=== PATIENT | male | born 2000 | race Caucasian/White ===

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

== ENCOUNTER 2021-04-07 22:06 | Emergency (ER) | payer MEDICAID ==
[2021-04-07 22:24] VITALS: BP 126/76
--- NOTE | 2021-04-07 22:24 | ED Physician Documentation ---
PD HPI HEENT - Stated complaint Stated Complaint: COUGHING BLOOD,SORE THROAT - Chief complaint Chief Complaint: Resp - History obtained from History obtained from: Patient - History of Present Illness Timing - onset: How many days ago (3-4) Timing - details: Gradual onset Location: Throat Improves: Nothing Worsens: Swalllowing Associated symptoms: Cough. No: Fever, Unable to swallow Similar symptoms before: Has not had sx before Recently seen: Not recently seen - Additional information Additional information: c/o sore throat and cough productive of blood-tinged but otherwise clear sputum. He notes mild dyspnea. Symptoms started 3 days ago, gradual onset. Review of Systems Constitutional: denies: Fever, Chills, Sweats Ears: denies: Ear pain Throat: reports: Sore throat Cardiac: denies: Chest pain / pressure Respiratory: reports: Cough, Hemoptysis. denies: Dyspnea PD PAST MEDICAL HISTORY - Past Medical History Cardiovascular: None Respiratory: Asthma Neuro: None Endocrine/Autoimmune: None GI: None : None HEENT: None Psych: Depression, Anxiety Musculoskeletal: None Derm: None - Past Surgical History Past Surgical History: Yes - Present Medications Home Medications: Ambulatory Orders Medication Instructions Recorded Confirmed No Known Home Medications 08/10/19 08/10/19 - Allergies Allergies/Adverse Reactions: Allergies Allergy/AdvReac Type Severity Reaction Status Date / Time amoxicillin [Amoxicillin] AdvReac Intermediate Rash Verified 04/07/21 22:19 - Social History Does the pt smoke?: Yes Smoking Status: Current every day smoker Does the pt drink ETOH?: No Does the pt have substance abuse?: No - Immunizations Immunizations are current?: Yes - POLST Patient has POLST: No PD ED PE NORMAL - Vitals Vital signs reviewed: Yes - General General: Alert and oriented X 3, No acute distress, Well developed/nourished - HEENT HEENT: Moist mucous membranes - Neck Neck: Supple, no meningeal sign - Respiratory Respiratory: No respiratory distress, Clear bilaterally PD ED PE EXPANDED - HEENT HEENT: Pharyngeal erythema (mild posterior o/p erythema without exudate or swelling) Results - Vitals Vitals: Vital Signs - 24 hr 04/07/21 22:19 Temperature 37.0 C Heart Rate 69 Respiratory 16 Rate Blood Pressure 126/76 O2 Saturation 97 Oxygen O2 Source Room air - Labs Labs: Laboratory Tests 04/07/21 22:35 Group A Strep Rapid Negative - Rads (name of study) chest xray Radiology: Prelim report reviewed, See rad report PD MEDICAL DECISION MAKING - ED course Complexity details: reviewed results, re-evaluated patient, considered differential, d/w patient ED course: rapid strep negative and normal chest xray. he is in NAD, has mild posterior o/p erythema. He describes cough with blood-tinged sputum. Given PO decadron in ED. A COVID test is performed, should result in 2 days; he is not COVID vaccinated Departure - Departure Disposition: 01 Home, Self Care Clinical Impression: Bronchitis Condition: Good Instructions: ED Upper Resp Infec No Abx Tx, ED Hemoptysis Follow-Up: German Arrieta [Primary Care Provider] - Forms: Activity restrictions Discharge Date/Time: 04/07/21 23:28
[2021-04-07] MEDS ORDERED: DEXAMETHASONE 10 MG/ML VIAL PO STA (22:40)
[2021-04-07] MEDS ORDERED: CHERRY SYRUP 10 ML UDC PO ONE (22:40)
[2021-04-07 22:50] LABS: RAPID STREP SCREEN Negative (Negative)
--- NOTE | 2021-04-08 08:23 | XRAY Report ---
PROCEDURE: Chest 2 View X-Ray INDICATIONS: hemoptysis, dyspnea TECHNIQUE: 2 view(s) of the chest. COMPARISON: 03/20/2019 FINDINGS: Surgical changes and devices: None. Lungs and pleura: No pleural effusions or pneumothorax. Lungs are clear. Mediastinum: Mediastinal contours are normal. Heart size is normal. Bones and chest wall: No suspicious bony abnormalities. Soft tissues appear unremarkable. IMPRESSION: No evidence acute pulmonary process. A preliminary report with the above findings was provided at the time of the study by [facility]. Reviewed by: Jagjit Freeman MD on 04/08/2021 7:22 AM DAVID Approved by: Jagjit Freeman MD on 04/08/2021 7:22 AM DAVID Station ID: [id number]
== END 2021-04-07 23:28 | disposition home or self-care (01) ==
LOC: ED 22:06
DX: J40 Bronchitis, not specified as acute or chronic (principal); F17.200 Nicotine dependence, unspecified, uncomplicated; Z20.822 Contact with and (suspected) exposure to COVID-19
CPT/HCPCS: 71046; 87070; 87430; 87635; 99283; 99284; A9270

== ENCOUNTER 2021-07-05 14:57 | Outpatient (CLI) | payer MEDICAID | END 2021-07-05 14:58 | disposition critical access hospital (66) | LOC: EMS 14:57 | DX: R56.9 Unspecified convulsions (principal) | CPT/HCPCS: A0425; A0427; A0999 ==

== ENCOUNTER 2021-07-05 15:23 | Emergency (ER) | payer MEDICAID ==
--- NOTE | 2021-07-05 15:37 | ED Physician Documentation ---
PD HPI SEIZURE - Stated complaint Stated Complaint: SZ - Chief complaint Chief Complaint: Neuro - History obtained from History obtained from: Patient, EMS - History of Present Illness Description of seizure activity: Generalized, Tonic clonic Injury during seizure: None Pain level max: 0 Pain level now: 0 Associated symptoms: None History of seizures: First seizure Recently seen: Not recently seen - Additional information Additional information: 21-year-old male who presents to the emergency department with seizure-like activity today. The first episode lasted about 2 to 3 minutes. Was postictal afterwards. EMS was called and picked the patient up. Had another 30 second seizure with EMS. Patient has never had seizures before. The seizure was described as generalized, tonic-clonic. No fall. No head injury. No incontinence. No tongue biting. No injuries. The patient states that he does drink alcohol "until I black out and can't see" and when asked how often he states "whenever I can". Last drink was 1-2 days ago. Given Versed by EMS in the ambulance. Review of Systems Ten Systems: 10 systems reviewed and negative Constitutional: denies: Fever, Chills Ears: denies: Ear pain Nose: denies: Rhinorrhea / runny nose, Congestion Throat: denies: Sore throat Cardiac: denies: Chest pain / pressure Respiratory: denies: Cough GI: denies: Abdominal Pain, Nausea, Vomiting, Diarrhea : denies: Dysuria Skin: denies: Rash Musculoskeletal: denies: Neck pain, Back pain Neurologic: reports: Headache (mild holocranial) PD PAST MEDICAL HISTORY - Past Medical History Past Medical History: No - Past Surgical History Past Surgical History: No - Present Medications Home Medications: Ambulatory Orders Medication Instructions Recorded Confirmed No Known Home Medications 07/05/21 07/05/21 - Allergies Allergies/Adverse Reactions: Allergies Allergy/AdvReac Type Severity Reaction Status Date / Time amoxicillin Allergy Unknown Verified 07/05/21 15:47 - Living Situation Living Arrangement: reports: At home - Social History Does the pt drink ETOH?: Yes ETOH Use: Liquor Does the pt have substance abuse?: Yes Substance Use and Type: Marijuana - Family History Family history: reports: Non contributory PD ED PE NORMAL - Vitals Vital signs reviewed: Yes - General General: Alert and oriented X 3, No acute distress - HEENT HEENT: Atraumatic, PERRL, EOMI, Ears normal, Moist mucous membranes, Pharynx benign, Dentition benign, Other (No tongue biting no scalp hematomas) - Neck Neck: Supple, no meningeal sign, No bony TTP - Cardiac Cardiac: RRR, No murmur, Strong equal pulses - Respiratory Respiratory: No respiratory distress, Clear bilaterally - Abdomen Abdomen: Soft, Non tender, Non distended - Back Back: No spinal TTP - Derm Derm: Warm and dry - Extremities Extremities: Normal ROM s pain, No edema - Neuro Neuro: Alert and oriented X 3, word processor 2-12 intact, No motor deficit, No sensory deficit, Normal speech Eye Opening: Spontaneous Motor: Obeys Commands Verbal: Oriented GCS Score: 15 - Psych Psych: Normal mood, Normal affect Results - Vitals Vitals: Vital Signs - 24 hr 07/05/21 07/05/21 07/05/21 15:31 17:36 19:00 Temperature 36.8 C 36.6 C 36.7 C Heart Rate 61 48 L 45 L Respiratory 17 20 20 Rate Blood Pressure 102/75 112/61 122/50 L O2 Saturation 99 99 96 07/05/21 19:57 Temperature Heart Rate 50 L Respiratory 16 Rate Blood Pressure 118/50 L O2 Saturation 98 Oxygen O2 Source Room air - Labs Labs: Laboratory Tests 07/05/21 07/05/21 07/05/21 15:36 15:54 15:54 WBC 8.5 RBC 5.26 Hgb 15.0 Hct 45.9 MCV 87.3 MCH 28.5 MCHC 32.7 RDW 13.5 Plt Count 253 MPV 10.5 Neut # (Auto) 5.9 Lymph # (Auto) 1.7 [place] # (Auto) 0.6 Eos # (Auto) 0.3 Baso # (Auto) 0.0 Absolute Nucleated RBC 0.00 Nucleated RBC % 0.0 Sodium 137 Potassium 3.7 Chloride 102 Carbon Dioxide 27 Anion Gap 8.0 BUN 15 Creatinine 1.1 Estimated GFR (MDRD) 85 L Glucose 99 POC Whole Bld Glucose 112 H Calcium 9.1 Total Bilirubin 0.6 AST 30 ALT 45 Alkaline Phosphatase 48 Total Protein 7.8 Albumin 4.3 Globulin 3.5 Albumin/Globulin Ratio 1.2 Lipase 26 TSH Urine Color Urine Clarity Urine pH Ur Specific Martell Urine Protein Urine Glucose (UA) Urine Ketones Urine Occult Blood Urine Nitrite Urine Bilirubin Urine Urobilinogen Ur Leukocyte Esterase Ur Microscopic Review Urine Culture Comments Salicylates < 6.0 Urine Opiates Screen Ur Oxycodone Screen Urine Methadone Screen Ur Propoxyphene Screen Acetaminophen < 10 L Ur Barbiturates Screen Ur Tricyclics Screen Ur Phencyclidine Scrn Ur Amphetamine Screen U Methamphetamines Scrn U Benzodiazepines Scrn Urine Cocaine Screen U Cannabinoids Screen Ethyl Alcohol < 5.0 07/05/21 07/05/21 15:54 16:02 WBC RBC Hgb Hct MCV MCH MCHC RDW Plt Count MPV Neut # (Auto) Lymph # (Auto) Washburn # (Auto) Eos # (Auto) Baso # (Auto) Absolute Nucleated RBC Nucleated RBC % Sodium Potassium Chloride Carbon Dioxide Anion Gap BUN Creatinine Estimated GFR (MDRD) Glucose POC Whole Bld Glucose Calcium Total Bilirubin AST ALT Alkaline Phosphatase Total Protein Albumin Globulin Albumin/Globulin Ratio Lipase TSH 4.15 Urine Color YELLOW Urine Clarity CLEAR Urine pH 7.5 Ur Specific Martell 1.015 Urine Protein NEGATIVE Urine Glucose (UA) NEGATIVE Urine Ketones NEGATIVE Urine Occult Blood NEGATIVE Urine Nitrite NEGATIVE Urine Bilirubin NEGATIVE Urine Urobilinogen 0.2 (NORMAL) Ur Leukocyte Esterase NEGATIVE Ur Microscopic Review NOT INDICATED Urine Culture Comments NOT INDICATED Salicylates Urine Opiates Screen NEGATIVE Ur Oxycodone Screen NEGATIVE Urine Methadone Screen NEGATIVE Ur Propoxyphene Screen NEGATIVE Acetaminophen Ur Barbiturates Screen NEGATIVE Ur Tricyclics Screen NEGATIVE Ur Phencyclidine Scrn NEGATIVE Ur Amphetamine Screen NEGATIVE U Methamphetamines Scrn NEGATIVE U Benzodiazepines Scrn NEGATIVE Urine Cocaine Screen NEGATIVE U Cannabinoids Screen POSITIVE H Ethyl Alcohol - Rads (name of study) Head CT Radiology: Final report received, EMP read contemporaneously, See rad report (No acute intracranial abnormality) PD MEDICAL DECISION MAKING - ED course Complexity details: reviewed results, re-evaluated patient, considered differential, d/w patient ED course: Patient with seizure-like activity today. Unclear etiology. He states he does drink heavily on a regular basis and has not drank for over 24 hours. Possible alcohol withdrawal seizure. We will have him follow-up with his doctor for MRI/EEG. We will hold off on antiepileptics unless there is a another seizure. Patient counseled to avoid alcohol and other drugs. Patient also informed he is not to drive until released by his doctor. Patient counseled regarding signs and symptoms for which I believe and urgent re-evaluation would be necessary. Patient with good understanding of and agreement to plan and is comfortable going home at this time This document was made in part using voice recognition software. While efforts are made to proofread this document, sound alike and grammatical errors may occur. Departure - Departure Disposition: 01 Home, Self Care Clinical Impression: Seizure-like activity Condition: Good Instructions: ED Seizure New Onset Unk Cause Follow-Up: German Arrieta [Physician No Access] - Within 1 week Comments: Please follow-up with your doctor within the next week. They need to order an MRI and EEG for you. They may want to refer you to neurology as well. Your head CT and laboratory testing did not show any acute abnormalities today. You are not to drive until released by your doctor. Also avoid swimming, baths and any standing water. You should also avoid alcohol or any other drugs. Return if you worsen. Discharge Date/Time: 07/05/21 19:59
[2021-07-05 16:01] LABS: BASOPHILS % (AUTO) 0.4 %; EOSINOPHILS # (AUTO) 0.3 10^3/uL (0.0-0.7); EOSINOPHILS % (AUTO) 2.9 %; HCT - HEMATOCRIT 45.9 % (42.0-52.0); LYMPHOCYTES # (AUTO) 1.7 10^3/uL (1.5-3.5); MEAN CORPUSCULAR HEMOGLOBIN 28.5 pg (27.0-31.0); MEAN CORPUSCULAR HGB CONC 32.7 g/dL (32.0-36.0); MEAN CORPUSCULAR VOLUME 87.3 fL (80.0-94.0); MEAN PLATELET VOLUME 10.5 fL (7.4-11.4); MONOCYTES # (AUTO) 0.6 10^3/uL (0.0-1.0); MONOCYTES % (AUTO) 6.9 %; NEUTROPHILS # (AUTO) 5.9 10^3/uL (1.5-6.6); NEUTROPHILS % (AUTO) 69.6 %; PLT - PLATELET COUNT 253 10^3/uL (130-450); RED BLOOD COUNT 5.26 10^6/uL (4.70-6.10); RED CELL DISTRIBUTION WIDTH 13.5 % (12.0-15.0); WHITE BLOOD COUNT 8.5 x10^3/uL (4.8-10.8)
[2021-07-05 16:10] LABS: MUDS CUTOFF CONCENTRATIONS CUTOFF CONC BELOW:
[2021-07-05 16:16] LABS: BILIRUBIN,URINE NEGATIVE (NEGATIVE); GLUCOSE, URINE (UA) NEGATIVE (NEGATIVE); KETONES,URINE (UA) NEGATIVE (NEGATIVE); LEUKOCYTE ESTERASE, URINE NEGATIVE (NEGATIVE); NITRITE,URINE NEGATIVE (NEGATIVE); OCCULT BLOOD,URINE NEGATIVE (NEGATIVE); PH,URINE 7.5 PH (5.0-7.5); PROTEIN,URINE NEGATIVE (NEGATIVE); UROBILINOGEN,URINE 0.2 (NORMAL) E.U./dL (NORMAL)
[2021-07-05 16:17] LABS: ACETAMINOPHEN < 10 ug/mL (10-30); ALBUMIN 4.3 g/dL (3.2-5.5); ALBUMIN/GLOBULIN RATIO 1.2 (1.0-2.2); ALKALINE PHOSPHATASE 48 IU/L (42-121); ALT ALANINE AMINOTRANSFERASE 45 IU/L (10-60); AST ASPARTATE AMINOTRANSFERASE 30 IU/L (10-42); BILIRUBIN,TOTAL 0.6 mg/dL (0.2-1.0); BUN - BLOOD UREA NITROGEN 15 mg/dL (6-20); CALCIUM 9.1 mg/dL (8.5-10.3); CARBON DIOXIDE - CO2 27 mmol/L (21-32); CHLORIDE 102 mmol/L (101-111); CREATININE 1.1 mg/dL (0.6-1.2); ETOH - ETHANOL < 5.0 mg/dL; GFR - MDRD 85 (>89); GLUCOSE 99 mg/dL (70-100); LIPASE 26 U/L (22-51); POTASSIUM 3.7 mmol/L (3.5-5.0); SALICYLATE < 6.0 mg/dL; SODIUM 137 mmol/L (135-145); TOTAL PROTEIN 7.8 g/dL (6.7-8.2)
[2021-07-05 16:19] LABS: CLARITY,URINE CLEAR (CLEAR)
[2021-07-05 16:25] LABS: AMPHETAMINE SCREEN,URINE NEGATIVE (NEGATIVE); BARBITURATE SCREEN,UR NEGATIVE (NEGATIVE); BENZODIAZEPINES SCREEN, URINE NEGATIVE (NEGATIVE); COCAINE SCREEN URINE NEGATIVE (NEGATIVE); METHADONE SCREEN, URINE NEGATIVE (NEGATIVE); METHAMPHETAMINES SCREEN, URINE NEGATIVE (NEGATIVE); OPIATE SCREEN, URINE NEGATIVE (NEGATIVE); OXYCODONE SCREEN, URINE NEGATIVE (NEGATIVE); PROPOXYPHENE SCREEN, URINE NEGATIVE (NEGATIVE); THC CANNABINOID SCREEN, URINE POSITIVE (NEGATIVE); TRICYCLIC ANTIDEPRESSANT,URINE NEGATIVE (NEGATIVE)
[2021-07-05 19:59] VITALS: BP 118/50
--- NOTE | 2021-07-11 06:19 | CT Report ---
PROCEDURE: HEAD WO INDICATIONS: seizure like activity TECHNIQUE: Noncontrast 4.5 mm thick angled axial sections acquired from the foramen magnum to the vertex. For r adiation dose reduction, the following was used: automated exposure control, adjustment of mA and/or kV according to patient size. COMPARISON: None. FINDINGS: Image quality: Excellent. CSF spaces: Basal cisterns are patent. No extra-axial fluid collections. Ventricles are normal in size and shape. Brain: No midline shift. No intracranial masses or hemorrhage. Calix-white matter interface is norm al. Skull and face: Calvarium and visualized facial bones are intact, without suspicious lesions. Sinuses: Visualized sinuses and mastoids are clear. IMPRESSION: No acute intracranial abnormality. Reviewed by: Michael Jacob MD on 07/05/2021 5:40 PM DAVID Approved by: Michael Jacob MD on 07/05/2021 5:40 PM DAVID Station ID: [id number]
== END 2021-07-05 19:59 | disposition home or self-care (01) ==
LOC: ED 15:23 → MERGE 15:23 → ED 19:59
DX: R56.9 Unspecified convulsions (principal)
CPT/HCPCS: 36415; 80053; 80306; 80307; 80320; 80329; 81001; 81003; 83690; 84443; 85025; 87086; 99284

== ENCOUNTER 2022-03-09 01:00 | Emergency (ER) | payer MEDICAID ==
[2022-03-09 01:16] VITALS: BP 109/60
== END 2022-03-09 02:26 | disposition left against medical advice (07) ==
LOC: ED 01:00
DX: Z53.21 Procedure and treatment not carried out due to patient leaving prior to being seen by health care provider (principal)

== ENCOUNTER 2022-03-14 00:35 | Emergency (ER) | payer MEDICAID ==
[2022-03-14] MEDS ORDERED: SILVER SULFADIAZINE CREAM 25 GM TUBE TOP STA (01:11)
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
[2022-03-14 01:41] VITALS: BP 127/64
== END 2022-03-14 01:40 | disposition home or self-care (01) ==
LOC: ED 00:35
DX: T24.231A Burn of second degree of right lower leg, initial encounter (principal); X58.XXXA Exposure to other specified factors, initial encounter; F17.200 Nicotine dependence, unspecified, uncomplicated
CPT/HCPCS: 99282; 99284; A9270

== ENCOUNTER 2022-07-19 14:27 | Emergency (ER) | payer MEDICAID ==
[2022-07-19 15:03] LABS: RAPID STREP SCREEN Negative (Negative)
[2022-07-19] MEDS ORDERED: CHERRY SYRUP 10 ML UDC PO ONE (16:16)
[2022-07-19] MEDS ORDERED: DEXAMETHASONE 10 MG/ML VIAL PO STA (16:16)
[2022-07-19] MEDS ORDERED: cephALEXin 250 MG CAPSULE PO STA (16:17)
[2022-07-19] MEDS ORDERED: IBUPROFEN 800 MG TABLET PO STA (16:18)
--- NOTE | 2022-07-19 16:39 | XRAY Report ---
PROCEDURE: Chest 1 View X-Ray INDICATIONS: cough/SOA TECHNIQUE: One view of the chest was acquired. COMPARISON: 04/07/2021 FINDINGS: Surgical changes and devices: None. Lungs and pleura: No pleural effusions or pneumothorax. Lungs are clear. Mediastinum: Mediastinal contours appear normal. Heart size is normal. Bones and chest wall: No suspicious bony lesions. Overlying soft tissues appear unremarkable. IMPRESSION: No acute cardiopulmonary process demonstrated radiographically. Reviewed by: Dick Bryant MD on 07/19/2022 4:38 PM PDT Approved by: Dick Bryant MD on 07/19/2022 4:38 PM PDT Station ID: [id number]
--- NOTE | 2022-07-19 16:55 | ED Physician Documentation ---
PD HPI HEENT - Stated complaint Stated Complaint: TONSILLITIS - Chief complaint Chief Complaint: Heent - History obtained from History obtained from: Patient - Additional information Additional information: Patient is a 22-year-old male presenting for evaluation of sore throat and discomfort in his throat for 3 to 4 days. He reports pain with trying to eat but has been able to hydrate. He has not tried anything for his symptoms. He denies a fever, difficulty breathing. He does report having a cough and sometimes feels burning in his chest.He denies nausea or vomiting. He denies known sick contacts. Review of Systems Constitutional: denies: Fever Nose: denies: Congestion Throat: reports: Sore throat Cardiac: denies: Chest pain / pressure Respiratory: reports: Cough. denies: Dyspnea GI: denies: Abdominal Pain, Vomiting Musculoskeletal: denies: Neck pain, Back pain Neurologic: denies: Headache PD PAST MEDICAL HISTORY - Past Medical History Cardiovascular: None Respiratory: Asthma Neuro: None Endocrine/Autoimmune: None GI: None : None HEENT: None Psych: Bipolar disorder, Depression, Anxiety Musculoskeletal: None Derm: None - Past Surgical History Past Surgical History: Yes Ortho: Other - Present Medications Home Medications: Ambulatory Orders Medication Instructions Recorded Confirmed cephALEXin [Keflex] 500 mg PO BID 10 Days #20 cap 07/19/22 - Allergies Allergies/Adverse Reactions: Allergies Allergy/AdvReac Type Severity Reaction Status Date / Time amoxicillin [Amoxicillin] AdvReac Intermediate Rash Verified 07/19/22 15:03 - Social History Does the pt smoke?: Yes Smoking Status: Current every day smoker Does the pt drink ETOH?: Yes Does the pt have substance abuse?: Yes - Immunizations Immunizations are current?: Yes - POLST Patient has POLST: No PD ED PE NORMAL - General General: Alert and oriented X 3, No acute distress, Well developed/nourished - HEENT HEENT: Atraumatic, PERRL, EOMI, Moist mucous membranes, Pharynx benign (Mild bilateral tonsillar enlargement with Exudate bilaterally, uvula is midline and not swollen; No signs of peritonsillar abscess) - Neck Neck: Supple, no meningeal sign, No bony TTP. No: No adenopathy (Bilateral anterior cervical lymphadenopathy) - Cardiac Cardiac: RRR - Respiratory Respiratory: No respiratory distress, Clear bilaterally - Abdomen Abdomen: Non tender, Non distended - Derm Derm: Warm and dry - Extremities Extremities: No edema Results - Vitals Vitals: Vital Signs - 24 hr 07/19/22 07/19/22 14:34 17:12 Temperature 36.4 C L 36.7 C Heart Rate 88 98 Respiratory 16 16 Rate Blood Pressure 118/68 106/79 O2 Saturation 98 100 Oxygen O2 Source Room air - Labs Labs: Laboratory Tests 07/19/22 14:41 Group A Strep Rapid Negative PD MEDICAL DECISION MAKING - ED course Complexity details: reviewed results, re-evaluated patient ED course: Patient presenting for evaluation of sore throat for 3 to 4 days. Strep swab was obtained at triage and rapid strep is negative. However based on patient's presentation and appearance of tonsils with exudate, I am concerned that there is a strep infection and rather than wait on cultures I discussed with patient on initiating antibiotics and he is agreeable. I also gave him a dose of Decadron and to help with inflammation and advised use of ibuprofen as well as continued hydration. No signs of peritonsillar abscess or airway compromise. Discussed concerning symptoms to return for. Patient had also reported cough And feeling that his chest is burning and chest x-ray was obtained and is negative. Departure - Departure Disposition: 01 Home, Self Care Clinical Impression: Acute pharyngitis Condition: Stable Instructions: ED Strep Pharyngitis Poss Prescriptions: cephALEXin [Keflex] 500 mg PO BID 10 Days #20 cap Comments: You were evaluated for a sore throat. A rapid strep test is negative but based on your clinical presentation I am concerned you may still have a strep infection and have started you on an oral antibiotic called Keflex.I have sent the prescription to [facility] in [place]. Due to the inflammation I have also given you a dose of steroid Called Decadron. I would continue with using anti- inflammatory such as ibuprofen and making sure you stay hydrated with plenty of fluids. If you have any worsening symptoms please consider return to the ER. Discharge Date/Time: 07/19/22 17:17
[2022-07-19 17:14] VITALS: BP 106/79
== END 2022-07-19 17:17 | disposition home or self-care (01) ==
LOC: ED 14:27
DX: J02.9 Acute pharyngitis, unspecified (principal); F17.200 Nicotine dependence, unspecified, uncomplicated
CPT/HCPCS: 71045; 87070; 87430; 99283; A9270

== ENCOUNTER 2022-08-08 16:39 | Emergency (ER) | payer MEDICAID ==
[2022-08-08 18:22] LABS: RAPID STREP SCREEN Negative (Negative)
[2022-08-08 19:06] LABS: B. PARAPERTUSSIS- RESP PCR PAN NOT DETECTED; B. PERTUSSIS- RESP PCR PANEL NOT DETECTED; C. PNEUMONIAE- RESP PCR PANEL NOT DETECTED; CORONAVIRUS 229E-RESP PCR NOT DETECTED; CORONAVIRUS HKU1-RESP PCR NOT DETECTED; CORONAVIRUS NL63-RESP PCR NOT DETECTED; CORONAVIRUS OC43-RESP PCR NOT DETECTED; HUMAN METAPNEUMOVIRUS NOT DETECTED; INFLUENZA A- RESP PCR PANEL NOT DETECTED; INFLUENZA B - RESP PCR PANEL NOT DETECTED; M. PNEUMONIAE- RESP PCR PANEL NOT DETECTED; PARAINFLUENZA VIRUS 1 NOT DETECTED; PARAINFLUENZA VIRUS 2 NOT DETECTED; PARAINFLUENZA VIRUS 3 NOT DETECTED; PARAINFLUENZA VIRUS 4 NOT DETECTED; RHINOVIRUS/ENTEROVIRUS NOT DETECTED; RSV- RESP PCR PANEL NOT DETECTED; SARS-CoV-2 -RESP PCR PANEL NOT DETECTED
[2022-08-08] MEDS ORDERED: HYDROcod/ACET 5/325 Prepack 4 PO STA (20:01)
[2022-08-08] MEDS ORDERED: LIDOCAINE 1% 2 ML VIAL MC ONE (20:01)
[2022-08-08] MEDS ORDERED: CHERRY SYRUP 10 ML UDC PO ONE (20:01)
[2022-08-08] MEDS ORDERED: DEXAMETHASONE 10 MG/ML VIAL PO STA (20:01)
[2022-08-08] MEDS ORDERED: cefTRIAXone 500 MG VIAL IM STA (20:01)
[2022-08-08] MEDS ORDERED: HYDROcod/ACETAM 5/325 MG TABLET PO STA (20:01)
--- NOTE | 2022-08-08 20:01 | ED Physician Documentation ---
PD HPI HEENT - Stated complaint Stated Complaint: SORE THROAT - Chief complaint Chief Complaint: Heent - History obtained from History obtained from: Patient - History of Present Illness Timing - onset: How many days ago (2-3 days with recurring symptoms now.), How many weeks ago (initially with similar symptoms 3 weeks ago and seen in ER with Dx empirically of tonsillitis. Rx with Keflex and mostly better per patient. Recurred symptoms within couple days after finished. Now worse symptoms with some garbling of speech.) Timing - details: Gradual onset, Still present Location: Throat. No: Nose Worsens: Swalllowing Associated symptoms: Fever, Swollen nodes. No: Congestion, Facial swelling, Cough Similar symptoms before: No diagnosis (had episode about 3 months ago similar. Then again couple weeks ago and now recurrent. rapid strep negative on recent visit and culture had normal irma.) Review of Systems Constitutional: reports: Fever Nose: denies: Rhinorrhea / runny nose, Congestion Throat: reports: Sore throat, Swollen tonsils Respiratory: denies: Cough GI: denies: Abdominal Pain, Nausea, Vomiting, Diarrhea Skin: denies: Rash, Lesions Neurologic: denies: Near syncope, Altered mental status, Headache PD PAST MEDICAL HISTORY - Past Medical History Cardiovascular: None Respiratory: Asthma Neuro: None Endocrine/Autoimmune: None GI: None : None HEENT: None Psych: Bipolar disorder, Depression, Anxiety Musculoskeletal: None Derm: None - Past Surgical History Past Surgical History: Yes Ortho: Other - Present Medications Home Medications: Ambulatory Orders Medication Instructions Recorded Confirmed cephALEXin [Keflex] 500 mg PO BID 10 Days #20 cap 07/19/22 Cefdinir 300 mg PO BID 10 Days #20 cap 08/08/22 HYDROcod/ACETAM 5/325 [Madison 5/325] 1 ea PO Q6H PRN #10 tablet 08/08/22 dexAMETHasone [Decadron] 4 mg PO DAILY #5 tablet 08/08/22 - Allergies Allergies/Adverse Reactions: Allergies Allergy/AdvReac Type Severity Reaction Status Date / Time amoxicillin [Amoxicillin] AdvReac Intermediate Rash Verified 08/08/22 16:58 - Social History Does the pt smoke?: Yes Smoking Status: Current every day smoker Does the pt drink ETOH?: Yes Does the pt have substance abuse?: Yes - Immunizations Immunizations are current?: Yes - POLST Patient has POLST: No PD ED PE NORMAL - Vitals Vital signs reviewed: Yes - General General: Alert and oriented X 3, No acute distress, Well developed/nourished - HEENT HEENT: Ears normal, Dentition benign. No: Pharynx benign (bilateral tonsils of moderately large size with exudate on both sides. No deviation toward center. There is however some tissue swelling mildly around both lateral sides of tonsils. mild garbling of voice with speaking. ) - Neck Neck: Supple, no meningeal sign, Other (anterior adenopathy mild to moderate. No general fullness. ) - Cardiac Cardiac: RRR, No murmur - Respiratory Respiratory: Clear bilaterally - Derm Derm: Normal color, Warm and dry, No rash - Neuro Neuro: Alert and oriented X 3, No motor deficit, Normal speech Results - Vitals Vitals: Vital Signs - 24 hr 08/08/22 08/08/22 08/08/22 16:55 19:37 20:30 Temperature 37.1 C Heart Rate 88 76 Respiratory 12 18 Rate Blood Pressure 117/60 142/66 H O2 Saturation 99 97 Oxygen O2 Source Room air - Labs Labs: Laboratory Tests 08/08/22 08/08/22 17:53 17:53 Nasal Adenovirus (PCR) NOT DETECTED Nasal B. parapertussis DNA (PCR) NOT DETECTED Nasal Coronavir 229E PCR NOT DETECTED Nasal Coronavir HKU1 PCR NOT DETECTED Nasal Coronavir NL63 PCR NOT DETECTED Nasal Coronavir OC43 PCR NOT DETECTED Nasal Enterovir/Rhinovir PCR NOT DETECTED Nasal Influenza B PCR NOT DETECTED Nasal Influenza A PCR NOT DETECTED Nasal Parainfluen 1 PCR NOT DETECTED Nasal Parainfluen 2 PCR NOT DETECTED Nasal Parainfluen 3 PCR NOT DETECTED Nasal Parainfluen 4 PCR NOT DETECTED Nasal RSV (PCR) NOT DETECTED Nasal B.pertussis DNA PCR NOT DETECTED Nasal C.pneumoniae (PCR) NOT DETECTED Jackson Human Metapneumo PCR NOT DETECTED Nasal M.pneumoniae (PCR) NOT DETECTED Nasal SARS-CoV-2 (PCR) NOT DETECTED Group A Strep Rapid Negative PD MEDICAL DECISION MAKING - ED course Complexity details: reviewed old records (throat culture and reapid strep test from recent visit both negative. ), re-evaluated patient (Clinically he has very concerning appearance for bacterial tonsillitis and peritonsillitis. No signs of peritonsillar abscess per se. Assumed nonstrep bacterial infection.), considered differential (clearly enlarged and exudative tonsils with some tissue edema mildly surrounding tonsils. No tonsillar deviation nor focal swelling. Had mostly improved with Keflex and now recurs. Will broaden coverage with 3rd Gen cephalosporin. ), d/w patient Departure - Departure Disposition: 01 Home, Self Care Clinical Impression: Recurrent acute tonsillitis, Peritonsillitis Condition: Stable Record reviewed to determine appropriate education?: Yes Follow-Up: [facility] [Provider Group] Prescriptions: Cefdinir 300 mg PO BID 10 Days #20 cap dexAMETHasone [Decadron] 4 mg PO DAILY #5 tablet HYDROcod/ACETAM 5/325 [Madison 5/325] 1 ea PO Q6H PRN #10 tablet PRN Reason: Pain Comments: Your tonsils are quite enlarged with exudate and look infected. Your prior strep test and throat culture from a few weeks ago was negative for strep. Therefore consider other causes. It does look like a bacterial type infection and had improved with the cephalexin for a while. I therefore would use a broader coverage cephalosporin along with the anti- inflammatories and pain medicine and see if it will go away consistently now. Given the recurrences of this over the last few months, you could also consult with the carroting machine offbearer to see if there is any indications for tonsil removal. I transmitted your prescriptions to [facility]. I am prescribing a short course of narcotic pain medication for you. These are potentially dangerous and addictive medications that should be used carefully. These medications may constipate you. Take an [id number] stool softener such as docusate twice daily with plenty of water while taking these medicat ions. If you go 24 hours without a bowel movement, take [id number] MiraLAX, per package instructions. Do not drink or drive while taking these medications. If you received narcotic or sedating medications while in the emergency department do not drive for 24 hours. Store this medication in a safe, secure place and out of reach of children. It is a violation of federal law to give or sell this medication to another person or to use in a manner other than prescribed. The ED will not refill narcotic prescriptions, including prescriptions lost or stolen. You can dispose of unwanted medications at the [facility], [facility]'s office or at several pharmacies such as [facility]. Discharge Date/Time: 08/08/22 20:37
[2022-08-08 20:30] VITALS: BP 142/66
== END 2022-08-08 20:37 | disposition home or self-care (01) ==
LOC: ED 16:39
DX: J36 Peritonsillar abscess (principal); F17.200 Nicotine dependence, unspecified, uncomplicated; Z20.822 Contact with and (suspected) exposure to COVID-19
CPT/HCPCS: 87070; 87430; 87633; 96372; 99283; 99284; A9270

== ENCOUNTER 2022-10-18 08:19 | Outpatient (CLI) | payer MEDICAID | END 2022-10-18 08:20 | disposition short-term general hospital (02) | LOC: EMS 08:19 | DX: R56.9 Unspecified convulsions (principal); Z72.89 Other problems related to lifestyle | CPT/HCPCS: A0425; A0427; A0999 ==

== ENCOUNTER 2022-10-28 18:01 | Outpatient (CLI) | payer MEDICAID | END 2022-10-28 18:02 | disposition left against medical advice (07) | LOC: EMS 18:01 | DX: R56.9 Unspecified convulsions (principal) ==

== ENCOUNTER 2023-06-26 07:48 | Outpatient (CLI) | payer MEDICAID | END 2023-06-26 07:49 | disposition short-term general hospital (02) | LOC: EMS 07:48 | DX: R56.9 Unspecified convulsions (principal) | CPT/HCPCS: A0425; A0427; A0999 ==